=== PATIENT | male | born 1965 | race Caucasian/White ===

== ENCOUNTER 2017-08-25 07:36 | Inpatient (IN) | payer MEDICARE, MEDICAID ==
[~2017-08-25] VITALS: Ht 193 cm; Wt 102.0 kg
[2017-08-25] MEDS ORDERED: gentamicin 40 MG/1 ML inj IV SCH (08:10)
[2017-08-25] MEDS ORDERED: LORazepam 2 mg/ml vial IV ONE (08:10)
[2017-08-25] MEDS ORDERED: levoFLOXACIN-Levaquin 750MG/D5 150 ML IV ONE (08:10)
[2017-08-25] MEDS ORDERED: ondansetron/PF 4mg/2ml inj IV ONE (08:10)
[2017-08-25] MEDS ORDERED: morphine 5 MG/ML injection IV PRN (08:10)
[2017-08-25] MEDS ORDERED: normal saline 1000ML IV soln IVB ONE ×2 (08:10)
[2017-08-25] MEDS ORDERED: LIDOcaine 1.5% w/epinephrine 1:200,000 5ml ampul IJ ONE (08:15)
[2017-08-25 08:28] LABS: BASOPHILS # (AUTO) 0.1 X10'3 (0-0.2); BASOPHILS % (AUTO) 0.3 % (0-1); EOSINOPHILS # (AUTO) 0.4 X10'3 (0-0.9); EOSINOPHILS % (AUTO) 1.7 % (0-6); HEMOGLOBIN 13.7 g/dl (14.0-17.9); LYMPHOCYTES # (AUTO) 1.4 X10'3 (1.1-4.8); LYMPHOCYTES % (AUTO) 6.6 % (21-51); MEAN CORPUSCULAR HEMOGLOBIN 30.9 PG (27.0-31.0); MEAN CORPUSCULAR HGB CONC 34.2 % (33.0-36.5); MEAN CORPUSCULAR VOLUME 90.5 FL (78-98); MEAN PLATELET VOLUME 8.1 FL (7.4-10.4); MONOCYTES # (AUTO) 1.7 X10'3 (0-0.9); MONOCYTES % (AUTO) 8.2 % (2-12); NEUTROPHILS # (AUTO) 17.7 X10'3 (1.8-7.7); NEUTROPHILS % (AUTO) 83.2 % (42-75); PLATELET COUNT 410 X10'3 (140-440); RED BLOOD COUNT 4.42 X10'6 (4.70-6.10); WHITE BLOOD COUNT 21.2 X10'3 (4.5-11.0)
[2017-08-25 08:43] LABS: ALANINE AMINOTRANSFERASE 38 U/L (12-78); ALBUMIN 3.4 G/DL (3.4-5.0); ALBUMIN/GLOBULIN RATIO 0.7 (1.1-1.5); ALKALINE PHOSPHATASE 157 IU/L (46-116); ANION GAP 11 (8-16); ASPARTATE AMINO TRANSFERASE 23 U/L (10-37); BLOOD UREA NITROGEN 14 MG/DL (7-18); BUN/CREATININE RATIO 12.5 (5.4-32.0); CALCIUM 9.9 MG/DL (8.5-10.1); CHLORIDE 99 MMOL/L (99-107); CREATININE 1.12 MG/DL (0.60-1.10); GLUCOSE 362 MG/DL (70-104); POTASSIUM 3.9 MMOL/L (3.5-5.1); SODIUM 137 MMOL/L (135-145); TOTAL PROTEIN 8.1 G/DL (6.4-8.2); eGFR 69 ML/MIN
[2017-08-25 09:04] LABS: CLARITY,URINE CLEAR (Clear); COLOR,URINE AMBER (Yellow); GLUCOSE, URINE >=1000 mg/dl (Neg); KETONES,URINE >=80 mg/dl (Neg); LEUKOCYTE ESTERASE ,URINE NEGATIVE (Neg); NITRITES, URINE NEGATIVE (Neg); OCCULT BLOOD,URINE SMALL (Neg); PROTEIN,URINE 100 mg/dl (Neg)
[2017-08-25 09:05] LABS: UA COLLECTION TYPE CLN CATCH MIDSTREAM
[2017-08-25 09:06] LABS: BACTERIA,URINE FEW /HPF (Neg); COARSE GRANULAR CAST 0-3 /LPF (NEGATIVE); RBC,URINE 0-2 /HPF (0-2); SQUAMOUS EPITHELIAL CELL,UR FEW /LPF (FEW); WBC,URINE 0-4 /HPF (0-4)
[2017-08-25 09:07] LABS: MUCUS STRANDS MODERATE /LPF (Neg)
[2017-08-25] MEDS: morphine sulfate 8 MG/ML SYRINGE IV PRN ×2 (09:09→15:37)
[2017-08-25] MEDS ORDERED: NORMAL SALINE IV ONE (09:30)
[2017-08-25] MEDS ORDERED: GENTAMICIN IV ONE (09:30)
[2017-08-25] MEDS ORDERED: insulin regular, human 10 units/0.1 ml syringe IV ONE (10:45)
[2017-08-25] MEDS ORDERED: insulin regular, human 10 units/0.1 ml syringe SQ ONE (10:45)
[2017-08-25] MEDS ORDERED: MESSAGE TO PHARMACY PO ONE (10:55)
[2017-08-25] MEDS ORDERED: potassium Cl 40MEQ/NS 500ml 500 ML IV PRN ×2 (10:55)
[2017-08-25] MEDS ORDERED: mag hydrox/Alum hydrox/simeth 30ml oral suspension PO PRN (10:55)
[2017-08-25] MEDS ORDERED: glucagon, human recombinant 1mg kit SUBCUT PRN (10:55)
[2017-08-25] MEDS ORDERED: magnesium hydroxide 30ml (MOM) UD suspension PO PRN (10:55)
[2017-08-25] MEDS ORDERED: morphine sulfate 8 MG/ML SYRINGE IV PRN (10:55)
[2017-08-25] MEDS ORDERED: acetaminophen 325mg tablet PO PRN ×2 (10:55)
[2017-08-25] MEDS: normal saline 1000ml 1,000 ML IV SCH ×2 (10:55→23:32)
[2017-08-25] MEDS ORDERED: dextrose 50%-water 50ml dispensing syringe IV PRN ×2 (10:55)
[2017-08-25] MEDS ORDERED: magnesium 2GM in 50ml NS 50 ML IV PRN (10:55)
[2017-08-25] MEDS ORDERED: dextrose ORAL solution 15 GM/59 ML bottle PO PRN ×2 (10:55)
[2017-08-25] MEDS ORDERED: magnesium 4gm in 100ml NS 100 ML IV PRN (10:55)
[2017-08-25] MEDS ORDERED: ondansetron/PF 4mg/2ml inj IV PRN (10:55)
[2017-08-25] MEDS ORDERED: potassium Cl 20 mEq SR tablet PO PRN (10:55)
[2017-08-25] MEDS ORDERED: HYDROcodone/acetaminophen 5mg/325mg tablet PO PRN (10:55)
[2017-08-25] MEDS ORDERED: diltiazem 5mg/ml 5ml inj. IV ONE (11:00)
[2017-08-25 11:41] LABS: HEMOGLOBIN A1C 9.8 % (4.5-6.2)
[2017-08-25 11:46] LABS: TROPONIN I < 0.04 NG/ML (0.0-0.05)
[2017-08-25] MEDS ORDERED: INSU100V9 SQ (12:56)
[2017-08-25] MEDS ORDERED: INSU100C10 SQ (12:57)
[2017-08-25] MEDS ORDERED: NEURONTIN PO (12:58)
[2017-08-25] MEDS ORDERED: PRAVASTATIN PO (13:00)
[2017-08-25] MEDS ORDERED: vancomycin/NS 1 GM ADD-VANTAGE 250 ML IV ONE (13:00)
[2017-08-25] MEDS ORDERED: ASPI-611 PO (13:00)
[2017-08-25] MEDS ORDERED: METF1000 PO (13:01)
[2017-08-25 14:30] VITALS: BP 119/64
[2017-08-25] MEDS: nicotine 14mg patch - 24hr TD SCH (15:37)
[2017-08-25] MEDS ORDERED: piperacillin/tazo 3.375gm/50ml 50 ML IV SCH (16:00)
[2017-08-25] MEDS ORDERED: PRAV40TA3 PO (16:40)
[2017-08-25] MEDS ORDERED: GABA-532 PO (16:40)
[2017-08-25] MEDS: lactobacillus rhamnosus 10,000 MMU CELLS/CAPSULE PO SCH (16:55)
[2017-08-25 19:30] VITALS: BP 111/56
[2017-08-25] MEDS: docusate sod 100mg capsule PO SCH (20:18)
[2017-08-25] MEDS: heparin, porcine 5000 units/ml vial SQ SCH (20:20)
[2017-08-25] MEDS: HYDROcodone/acetaminophen 10/325mg tab PO PRN (20:30)
[2017-08-25] MEDS: Insulin Detemir pen SQ SCH (23:00)
[2017-08-25] MEDS: temazepam 15mg capsule PO PRN (23:29)
[2017-08-25] MEDS: pregabalin 25mg capsule PO SCH (23:29)
[2017-08-26] VITALS: BP 116/70
[2017-08-26] MEDS: HYDROcodone/acetaminophen 10/325mg tab PO PRN ×2 (01:57→07:53)
[2017-08-26 05:21] LABS: BASOPHILS # (AUTO) 0.1 X10'3 (0-0.2); BASOPHILS % (AUTO) 0.9 % (0-1); EOSINOPHILS # (AUTO) 0.2 X10'3 (0-0.9); EOSINOPHILS % (AUTO) 1.5 % (0-6); HEMATOCRIT 34.3 % (42.0-52.0); HEMOGLOBIN 11.7 g/dl (14.0-17.9); LYMPHOCYTES # (AUTO) 2.2 X10'3 (1.1-4.8); LYMPHOCYTES % (AUTO) 13.8 % (21-51); MEAN CORPUSCULAR HGB CONC 34.2 % (33.0-36.5); MEAN CORPUSCULAR VOLUME 90.7 FL (78-98); MEAN PLATELET VOLUME 8.5 FL (7.4-10.4); MONOCYTES # (AUTO) 1.7 X10'3 (0-0.9); MONOCYTES % (AUTO) 10.4 % (2-12); NEUTROPHILS # (AUTO) 11.8 X10'3 (1.8-7.7); NEUTROPHILS % (AUTO) 73.4 % (42-75); PLATELET COUNT 353 X10'3 (140-440); RED BLOOD COUNT 3.78 X10'6 (4.70-6.10); WHITE BLOOD COUNT 16.1 X10'3 (4.5-11.0)
[2017-08-26 06:01] LABS: ALANINE AMINOTRANSFERASE 35 U/L (12-78); ALBUMIN 2.5 G/DL (3.4-5.0); ALBUMIN/GLOBULIN RATIO 0.6 (1.1-1.5); ALKALINE PHOSPHATASE 145 IU/L (46-116); ANION GAP 10 (8-16); ASPARTATE AMINO TRANSFERASE 20 U/L (10-37); BILIRUBIN,TOTAL 0.8 MG/DL (0.1-1.0); BLOOD UREA NITROGEN 10 MG/DL (7-18); BUN/CREATININE RATIO 11.4 (5.4-32.0); CALCIUM 8.7 MG/DL (8.5-10.1); CHLORIDE 102 MMOL/L (99-107); CHOL/HDL RATIO 3.9 (0.00-4.99); CHOLESTEROL 102 MG/DL (0-200); CREATININE 0.88 MG/DL (0.60-1.10); GLUCOSE 196 MG/DL (70-104); HDL CHOLESTEROL 26 MG/DL (35-60); LDL CHOLESTEROL 66 MG/DL (50-100); MAGNESIUM 1.2 MG/DL (1.5-2.4); SODIUM 138 MMOL/L (135-145); TOTAL CARBON DIOXIDE 25.9 MMOL/L (24-32); TOTAL PROTEIN 6.6 G/DL (6.4-8.2); TRIGLYCERIDES 77 MG/DL (20-135); eGFR > 90 ML/MIN
[2017-08-26] MEDS: K and/or MAG REPLACEMENT MC SCH (06:43)
[2017-08-26] MEDS: normal saline 1000ml 1,000 ML IV SCH ×2 (06:55→17:10)
[2017-08-26 07:00] VITALS: BP 140/84
[2017-08-26] MEDS: docusate sod 100mg capsule PO SCH ×2 (07:49→20:24)
[2017-08-26] MEDS: lactobacillus rhamnosus 10,000 MMU CELLS/CAPSULE PO SCH ×2 (07:49→17:10)
[2017-08-26] MEDS: lisinopril 20mg tablet PO SCH (07:50)
[2017-08-26] MEDS: pantoprazole 40mg Tablet.DR PO SCH (07:50)
[2017-08-26] MEDS: magnesium Cl slow-release 64mg tablet PO PRN ×2 (07:51→20:22)
[2017-08-26] MEDS: pregabalin 25mg capsule PO SCH ×3 (07:51→20:23)
[2017-08-26] MEDS: potassium Cl 20 mEq SR tablet PO PRN ×3 (07:52→20:24)
[2017-08-26] MEDS: heparin, porcine 5000 units/ml vial SQ SCH ×2 (07:53→20:23)
[2017-08-26] MEDS: nicotine 14mg patch - 24hr TD SCH (08:30)
[2017-08-26] MEDS: levoFLOXACIN 250mg tablet PO SCH (08:30)
[2017-08-26] MEDS: insulin Lispro (HumaLOG) vial - multi-dose SQ SCH ×3 (08:46→18:53)
[2017-08-26] MEDS: morphine sulfate 8 MG/ML SYRINGE IV PRN ×2 (11:22→20:23)
[2017-08-26 12:57] VITALS: BP 108/60
[2017-08-26] MEDS ORDERED: VANCOMYCIN LEVEL IV ONE (19:30)
[2017-08-26 20:00] VITALS: BP 133/73
[2017-08-26] MEDS: Insulin Detemir pen SQ SCH (21:20)
[2017-08-27] VITALS: BP 131/70
[2017-08-27] MEDS: temazepam 15mg capsule PO PRN (00:23)
[2017-08-27] MEDS: morphine sulfate 8 MG/ML SYRINGE IV PRN ×4 (00:23→16:20)
[2017-08-27] MEDS: normal saline 1000ml 1,000 ML IV SCH ×3 (02:55→22:55)
[2017-08-27 05:40] LABS: BASOPHILS # (AUTO) 0.1 X10'3 (0-0.2); BASOPHILS % (AUTO) 0.8 % (0-1); EOSINOPHILS # (AUTO) 0.4 X10'3 (0-0.9); EOSINOPHILS % (AUTO) 3.2 % (0-6); HEMATOCRIT 34.9 % (42.0-52.0); LYMPHOCYTES # (AUTO) 2.5 X10'3 (1.1-4.8); LYMPHOCYTES % (AUTO) 19.4 % (21-51); MEAN CORPUSCULAR HEMOGLOBIN 31.1 PG (27.0-31.0); MEAN CORPUSCULAR HGB CONC 34.4 % (33.0-36.5); MEAN CORPUSCULAR VOLUME 90.2 FL (78-98); MONOCYTES # (AUTO) 1.2 X10'3 (0-0.9); MONOCYTES % (AUTO) 9.7 % (2-12); NEUTROPHILS # (AUTO) 8.6 X10'3 (1.8-7.7); NEUTROPHILS % (AUTO) 66.9 % (42-75); PLATELET COUNT 356 X10'3 (140-440); RED BLOOD COUNT 3.87 X10'6 (4.70-6.10); RED CELL DISTRIBUTION WIDTH 13.7 % (11.5-14.5); WHITE BLOOD COUNT 12.8 X10'3 (4.5-11.0)
[2017-08-27 06:00] LABS: ALANINE AMINOTRANSFERASE 48 U/L (12-78); ALBUMIN 2.5 G/DL (3.4-5.0); ALBUMIN/GLOBULIN RATIO 0.6 (1.1-1.5); ALKALINE PHOSPHATASE 166 IU/L (46-116); ANION GAP 12 (8-16); ASPARTATE AMINO TRANSFERASE 34 U/L (10-37); BILIRUBIN,TOTAL 0.5 MG/DL (0.1-1.0); BLOOD UREA NITROGEN 12 MG/DL (7-18); BUN/CREATININE RATIO 15.6 (5.4-32.0); CALCIUM 9.1 MG/DL (8.5-10.1); CHLORIDE 104 MMOL/L (99-107); CREATININE 0.77 MG/DL (0.60-1.10); GLUCOSE 141 MG/DL (70-104); MAGNESIUM 1.3 MG/DL (1.5-2.4); POTASSIUM 3.7 MMOL/L (3.5-5.1); SODIUM 140 MMOL/L (135-145); TOTAL CARBON DIOXIDE 23.7 MMOL/L (24-32); TOTAL PROTEIN 6.6 G/DL (6.4-8.2); eGFR > 90 ML/MIN
[2017-08-27 07:00] VITALS: BP 109/69
[2017-08-27] MEDS: docusate sod 100mg capsule PO SCH ×2 (07:34→20:56)
[2017-08-27] MEDS: lactobacillus rhamnosus 10,000 MMU CELLS/CAPSULE PO SCH ×2 (07:34→16:19)
[2017-08-27] MEDS: pregabalin 25mg capsule PO SCH ×3 (07:34→20:56)
[2017-08-27] MEDS: lisinopril 20mg tablet PO SCH (07:35)
[2017-08-27] MEDS: HYDROcodone/acetaminophen 10/325mg tab PO PRN ×2 (07:35→13:20)
[2017-08-27] MEDS: heparin, porcine 5000 units/ml vial SQ SCH ×2 (07:35→20:56)
[2017-08-27] MEDS: levoFLOXACIN 250mg tablet PO SCH (07:35)
[2017-08-27] MEDS: pantoprazole 40mg Tablet.DR PO SCH (07:35)
[2017-08-27] MEDS: nicotine 14mg patch - 24hr TD SCH (07:36)
[2017-08-27] MEDS: K and/or MAG REPLACEMENT MC SCH (07:37)
[2017-08-27] MEDS: magnesium Cl slow-release 64mg tablet PO PRN ×2 (07:53→16:19)
[2017-08-27 11:34] VITALS: BP 96/51
[2017-08-27] MEDS: insulin Lispro (HumaLOG) vial - multi-dose SQ SCH (14:19)
[2017-08-27] MEDS: LORazepam 1 MG tablet PO PRN (16:19)
[2017-08-27 20:00] VITALS: BP 144/94
[2017-08-27] MEDS: Insulin Detemir pen SQ SCH (21:11)
[2017-08-28] VITALS: BP 120/62
[2017-08-28] MEDS: HYDROcodone/acetaminophen 10/325mg tab PO PRN ×4 (00:02→16:57)
[2017-08-28] MEDS: LORazepam 1 MG tablet PO PRN ×3 (00:02→21:52)
[2017-08-28] MEDS: normal saline 1000ml 1,000 ML IV SCH ×2 (01:11→18:55)
[2017-08-28 05:21] LABS: BASOPHILS # (AUTO) 0.1 X10'3 (0-0.2); BASOPHILS % (AUTO) 1.3 % (0-1); EOSINOPHILS # (AUTO) 0.3 X10'3 (0-0.9); EOSINOPHILS % (AUTO) 2.6 % (0-6); HEMOGLOBIN 11.5 g/dl (14.0-17.9); LYMPHOCYTES # (AUTO) 2.6 X10'3 (1.1-4.8); LYMPHOCYTES % (AUTO) 22.2 % (21-51); MEAN CORPUSCULAR HEMOGLOBIN 30.8 PG (27.0-31.0); MEAN CORPUSCULAR HGB CONC 33.9 % (33.0-36.5); MEAN CORPUSCULAR VOLUME 90.7 FL (78-98); MEAN PLATELET VOLUME 8.3 FL (7.4-10.4); MONOCYTES # (AUTO) 1.1 X10'3 (0-0.9); MONOCYTES % (AUTO) 9.2 % (2-12); NEUTROPHILS # (AUTO) 7.5 X10'3 (1.8-7.7); NEUTROPHILS % (AUTO) 64.7 % (42-75); PLATELET COUNT 369 X10'3 (140-440); RED BLOOD COUNT 3.75 X10'6 (4.70-6.10); RED CELL DISTRIBUTION WIDTH 13.8 % (11.5-14.5); WHITE BLOOD COUNT 11.6 X10'3 (4.5-11.0)
[2017-08-28 05:59] LABS: ALANINE AMINOTRANSFERASE 66 U/L (12-78); ALBUMIN 2.4 G/DL (3.4-5.0); ALBUMIN/GLOBULIN RATIO 0.6 (1.1-1.5); ALKALINE PHOSPHATASE 196 IU/L (46-116); ANION GAP 8 (8-16); ASPARTATE AMINO TRANSFERASE 37 U/L (10-37); BILIRUBIN,TOTAL 0.3 MG/DL (0.1-1.0); BLOOD UREA NITROGEN 12 MG/DL (7-18); BUN/CREATININE RATIO 13.3 (5.4-32.0); CALCIUM 8.9 MG/DL (8.5-10.1); CHLORIDE 105 MMOL/L (99-107); GLUCOSE 255 MG/DL (70-104); MAGNESIUM 1.4 MG/DL (1.5-2.4); POTASSIUM 3.7 MMOL/L (3.5-5.1); SODIUM 139 MMOL/L (135-145); TOTAL CARBON DIOXIDE 26.1 MMOL/L (24-32); TOTAL PROTEIN 6.5 G/DL (6.4-8.2); eGFR 89 ML/MIN
[2017-08-28] MEDS: K and/or MAG REPLACEMENT MC SCH (06:27)
[2017-08-28 06:30] VITALS: BP 116/71
[2017-08-28] MEDS: pregabalin 25mg capsule PO SCH ×3 (07:23→21:38)
[2017-08-28] MEDS: lisinopril 20mg tablet PO SCH (07:23)
[2017-08-28] MEDS: nicotine 14mg patch - 24hr TD SCH (07:23)
[2017-08-28] MEDS: pantoprazole 40mg Tablet.DR PO SCH (07:23)
[2017-08-28] MEDS: lactobacillus rhamnosus 10,000 MMU CELLS/CAPSULE PO SCH ×2 (07:23→16:51)
[2017-08-28] MEDS: magnesium Cl slow-release 64mg tablet PO PRN (07:23)
[2017-08-28] MEDS: docusate sod 100mg capsule PO SCH ×2 (07:23→20:00)
[2017-08-28] MEDS: morphine sulfate 8 MG/ML SYRINGE IV PRN ×4 (07:24→21:39)
[2017-08-28] MEDS: heparin, porcine 5000 units/ml vial SQ SCH ×2 (07:24→21:39)
[2017-08-28] MEDS: insulin Lispro (HumaLOG) vial - multi-dose SQ SCH ×3 (08:48→19:21)
[2017-08-28 11:16] VITALS: BP 118/67
[2017-08-28] MEDS ORDERED: magnesium 4gm in 100ml NS 100 ML IV PRN (16:45)
[2017-08-28] MEDS ORDERED: magnesium Cl slow-release 64mg tablet PO PRN (16:45)
[2017-08-28] MEDS ORDERED: potassium Cl 40MEQ/NS 500ml 500 ML IV PRN ×2 (16:45)
[2017-08-28] MEDS ORDERED: potassium Cl 20 mEq SR tablet PO PRN ×2 (16:45)
[2017-08-28] MEDS ORDERED: magnesium 2GM in 50ml NS 50 ML IV PRN (16:45)
[2017-08-28 20:00] VITALS: BP 142/81
[2017-08-28] MEDS: Insulin Detemir pen SQ SCH (21:37)
[2017-08-29] VITALS: BP 123/75
[2017-08-29] MEDS: temazepam 15mg capsule PO PRN (00:12)
[2017-08-29] MEDS: HYDROcodone/acetaminophen 10/325mg tab PO PRN ×5 (00:12→23:53)
[2017-08-29] MEDS: normal saline 1000ml 1,000 ML IV SCH ×2 (04:13→17:27)
[2017-08-29 05:35] LABS: BASOPHILS # (AUTO) 0.2 X10'3 (0-0.2); BASOPHILS % (AUTO) 1.4 % (0-1); EOSINOPHILS # (AUTO) 0.3 X10'3 (0-0.9); EOSINOPHILS % (AUTO) 2.5 % (0-6); HEMATOCRIT 35.1 % (42.0-52.0); HEMOGLOBIN 11.9 g/dl (14.0-17.9); LYMPHOCYTES # (AUTO) 2.3 X10'3 (1.1-4.8); LYMPHOCYTES % (AUTO) 19.9 % (21-51); MEAN CORPUSCULAR HEMOGLOBIN 30.7 PG (27.0-31.0); MEAN CORPUSCULAR HGB CONC 33.9 % (33.0-36.5); MEAN CORPUSCULAR VOLUME 90.5 FL (78-98); MEAN PLATELET VOLUME 8.1 FL (7.4-10.4); MONOCYTES # (AUTO) 0.9 X10'3 (0-0.9); MONOCYTES % (AUTO) 7.4 % (2-12); NEUTROPHILS % (AUTO) 68.8 % (42-75); PLATELET COUNT 400 X10'3 (140-440); RED BLOOD COUNT 3.88 X10'6 (4.70-6.10); RED CELL DISTRIBUTION WIDTH 13.8 % (11.5-14.5); WHITE BLOOD COUNT 11.7 X10'3 (4.5-11.0)
[2017-08-29 06:25] LABS: ALANINE AMINOTRANSFERASE 61 U/L (12-78); ALBUMIN 2.5 G/DL (3.4-5.0); ALBUMIN/GLOBULIN RATIO 0.6 (1.1-1.5); ALKALINE PHOSPHATASE 195 IU/L (46-116); ANION GAP 11 (8-16); ASPARTATE AMINO TRANSFERASE 32 U/L (10-37); BILIRUBIN,TOTAL 0.3 MG/DL (0.1-1.0); BLOOD UREA NITROGEN 8 MG/DL (7-18); BUN/CREATININE RATIO 10.5 (5.4-32.0); CALCIUM 9.4 MG/DL (8.5-10.1); CHLORIDE 105 MMOL/L (99-107); CREATININE 0.76 MG/DL (0.60-1.10); GLUCOSE 140 MG/DL (70-104); MAGNESIUM 1.5 MG/DL (1.5-2.4); SODIUM 140 MMOL/L (135-145); TOTAL CARBON DIOXIDE 24.5 MMOL/L (24-32); TOTAL PROTEIN 6.8 G/DL (6.4-8.2); eGFR > 90 ML/MIN
[2017-08-29 06:30] VITALS: BP 126/85
[2017-08-29] MEDS: K and/or MAG REPLACEMENT MC SCH (06:36)
[2017-08-29] MEDS: docusate sod 100mg capsule PO SCH ×2 (07:24→19:36)
[2017-08-29] MEDS: lisinopril 20mg tablet PO SCH (07:24)
[2017-08-29] MEDS: lactobacillus rhamnosus 10,000 MMU CELLS/CAPSULE PO SCH ×2 (07:24→17:26)
[2017-08-29] MEDS: LORazepam 1 MG tablet PO PRN ×3 (07:24→23:52)
[2017-08-29] MEDS: nicotine 14mg patch - 24hr TD SCH (07:24)
[2017-08-29] MEDS: pregabalin 25mg capsule PO SCH ×3 (07:25→21:31)
[2017-08-29] MEDS: pantoprazole 40mg Tablet.DR PO SCH (07:25)
[2017-08-29] MEDS: heparin, porcine 5000 units/ml vial SQ SCH ×2 (07:25→19:36)
[2017-08-29] MEDS: morphine sulfate 8 MG/ML SYRINGE IV PRN ×2 (07:28→21:31)
[2017-08-29] MEDS: insulin Lispro (HumaLOG) vial - multi-dose SQ SCH ×3 (09:36→19:42)
[2017-08-29 11:57] VITALS: BP 141/96
[2017-08-29 20:00] VITALS: BP 130/77
[2017-08-29] MEDS: Insulin Detemir pen SQ SCH (21:45)
[2017-08-29] MEDS: diphenhydrAMINE 50 mg/ml inj IV PRN (23:52)
[2017-08-30] VITALS: BP 149/86
[2017-08-30] MEDS: normal saline 1000ml 1,000 ML IV SCH ×3 (00:55→21:21)
[2017-08-30] MEDS: morphine sulfate 8 MG/ML SYRINGE IV PRN (04:55)
[2017-08-30 06:45] LABS: BASOPHILS # (AUTO) 0.1 X10'3 (0-0.2); BASOPHILS % (AUTO) 1.2 % (0-1); EOSINOPHILS # (AUTO) 0.5 X10'3 (0-0.9); EOSINOPHILS % (AUTO) 4.2 % (0-6); HEMATOCRIT 35.1 % (42.0-52.0); LYMPHOCYTES # (AUTO) 2.6 X10'3 (1.1-4.8); LYMPHOCYTES % (AUTO) 22.9 % (21-51); MEAN CORPUSCULAR HEMOGLOBIN 31.2 PG (27.0-31.0); MEAN CORPUSCULAR HGB CONC 34.1 % (33.0-36.5); MEAN CORPUSCULAR VOLUME 91.6 FL (78-98); MEAN PLATELET VOLUME 7.7 FL (7.4-10.4); MONOCYTES # (AUTO) 0.8 X10'3 (0-0.9); NEUTROPHILS # (AUTO) 7.3 X10'3 (1.8-7.7); NEUTROPHILS % (AUTO) 64.7 % (42-75); PLATELET COUNT 393 X10'3 (140-440); RED BLOOD COUNT 3.83 X10'6 (4.70-6.10); WHITE BLOOD COUNT 11.2 X10'3 (4.5-11.0)
[2017-08-30 07:07] LABS: ALANINE AMINOTRANSFERASE 60 U/L (12-78); ALBUMIN 2.5 G/DL (3.4-5.0); ALBUMIN/GLOBULIN RATIO 0.6 (1.1-1.5); ALKALINE PHOSPHATASE 184 IU/L (46-116); ANION GAP 8 (8-16); ASPARTATE AMINO TRANSFERASE 30 U/L (10-37); BILIRUBIN,TOTAL 0.2 MG/DL (0.1-1.0); BLOOD UREA NITROGEN 12 MG/DL (7-18); BUN/CREATININE RATIO 14.1 (5.4-32.0); CALCIUM 9.4 MG/DL (8.5-10.1); CHLORIDE 107 MMOL/L (99-107); CREATININE 0.85 MG/DL (0.60-1.10); GLUCOSE 172 MG/DL (70-104); MAGNESIUM 1.6 MG/DL (1.5-2.4); POTASSIUM 4.1 MMOL/L (3.5-5.1); SODIUM 141 MMOL/L (135-145); TOTAL CARBON DIOXIDE 25.6 MMOL/L (24-32); TOTAL PROTEIN 6.8 G/DL (6.4-8.2); eGFR > 90 ML/MIN
[2017-08-30] MEDS: nicotine 14mg patch - 24hr TD SCH (07:12)
[2017-08-30] MEDS: heparin, porcine 5000 units/ml vial SQ SCH ×2 (07:15→21:21)
[2017-08-30] MEDS: lactobacillus rhamnosus 10,000 MMU CELLS/CAPSULE PO SCH ×2 (07:18→17:22)
[2017-08-30] MEDS: docusate sod 100mg capsule PO SCH ×2 (07:19→21:19)
[2017-08-30] MEDS: pantoprazole 40mg Tablet.DR PO SCH (07:19)
[2017-08-30] MEDS: pregabalin 25mg capsule PO SCH ×3 (07:20→21:19)
[2017-08-30] MEDS: HYDROcodone/acetaminophen 10/325mg tab PO PRN ×3 (07:20→21:18)
[2017-08-30] MEDS: lisinopril 20mg tablet PO SCH (07:20)
[2017-08-30] MEDS: diphenhydrAMINE 50 mg/ml inj IV PRN ×2 (07:21→21:20)
[2017-08-30 07:31] VITALS: BP 142/84
[2017-08-30] MEDS: K and/or MAG REPLACEMENT MC SCH (07:39)
[2017-08-30] MEDS: LORazepam 1 MG tablet PO PRN ×2 (08:28→17:22)
[2017-08-30] MEDS: insulin Lispro (HumaLOG) vial - multi-dose SQ SCH ×2 (08:55→19:23)
[2017-08-30 11:47] VITALS: BP_SYST 151; BP_SYST 159; BP_DIAS 80; BP_DIAS 89
[2017-08-30] MEDS ORDERED: magnesium 2GM in 50ml NS 50 ML IV PRN (19:35)
[2017-08-30] MEDS ORDERED: magnesium Cl slow-release 64mg tablet PO PRN (19:35)
[2017-08-30] MEDS ORDERED: magnesium 4gm in 100ml NS 100 ML IV PRN (19:35)
[2017-08-30 20:00] VITALS: BP_SYST 131; BP_SYST 134; BP_DIAS 71; BP_DIAS 74
[2017-08-30] MEDS: Insulin Detemir pen SQ SCH (21:30)
[2017-08-31] MEDS: LORazepam 1 MG tablet PO PRN ×2 (01:59→14:58)
[2017-08-31] MEDS: HYDROcodone/acetaminophen 10/325mg tab PO PRN ×3 (02:00→12:20)
[2017-08-31] MEDS: normal saline 1000ml 1,000 ML IV SCH (06:55)
[2017-08-31] MEDS: K and/or MAG REPLACEMENT MC SCH (06:55)
[2017-08-31 07:12] VITALS: BP 144/83
[2017-08-31] MEDS: pantoprazole 40mg Tablet.DR PO SCH (07:31)
[2017-08-31] MEDS: lactobacillus rhamnosus 10,000 MMU CELLS/CAPSULE PO SCH (07:31)
[2017-08-31] MEDS: docusate sod 100mg capsule PO SCH (07:31)
[2017-08-31] MEDS: lisinopril 20mg tablet PO SCH (07:32)
[2017-08-31] MEDS: pregabalin 25mg capsule PO SCH ×2 (07:32→12:20)
[2017-08-31] MEDS: nicotine 14mg patch - 24hr TD SCH (07:34)
[2017-08-31] MEDS: heparin, porcine 5000 units/ml vial SQ SCH (07:35)
[2017-08-31] MEDS: insulin Lispro (HumaLOG) vial - multi-dose SQ SCH ×2 (08:33→13:29)
[2017-08-31 11:00] VITALS: BP 145/84
[2017-08-31] MEDS ORDERED: linezolid 600mg tablet PO SCH (11:00)
[2017-08-31] MEDS ORDERED: SULF1TAB49 PO (11:04)
== END 2017-08-31 17:41 | disposition home or self-care (01) | DRG 581 ==
LOC: ER 07:37 → ED HOLD 10:34 → EDBEDREQ 12:03 → SUR 3N 14:32
PROVIDERS: ADMIT Internal Medicine; ATTEND Internal Medicine
PROC: 0J970ZZ Drainage of Back Subcutaneous Tissue and Fascia, Open Approach (ICD-10-PCS; principal; 2017-08-25)
DX: L03.312 Cellulitis of back [any part except buttock and flank] (principal); E11.42 Type 2 diabetes mellitus with diabetic polyneuropathy; E11.65 Type 2 diabetes mellitus with hyperglycemia; L02.212 Cutaneous abscess of back [any part, except buttock and flank]; B95.62 Methicillin resistant Staphylococcus aureus infection as the cause of diseases classified elsewhere; D64.9 Anemia, unspecified; E78.5 Hyperlipidemia, unspecified; E83.42 Hypomagnesemia; E87.6 Hypokalemia; F32.9 Major depressive disorder, single episode, unspecified; F41.9 Anxiety disorder, unspecified; I10 Essential (primary) hypertension; N28.9 Disorder of kidney and ureter, unspecified; G43.909 Migraine, unspecified, not intractable, without status migrainosus; M54.9 Dorsalgia, unspecified; F17.210 Nicotine dependence, cigarettes, uncomplicated; Z59.0 Homelessness; Z88.0 Allergy status to penicillin; Z79.899 Other long term (current) drug therapy; Z79.82 Long term (current) use of aspirin; Z79.4 Long term (current) use of insulin; Z79.84 Long term (current) use of oral hypoglycemic drugs; Z71.6 Tobacco abuse counseling
CPT/HCPCS: 10060; 36415; 80053; 80061; 80202; 81001; 82948; 83036; 83605; 83735; 83880; 84484; 85025; 87040; 87070; 87077; 87186; 93005; 96374; 96375; 99285; A6213; A6251; A6253; A6266; A6449; J1200; J1580; J1644; J1815; J1956; J2060; J2270; J2405; J3370; J3490; J7030

== ENCOUNTER 2017-09-02 08:02 | Emergency (ER) | payer MEDICARE, MEDICAID ==
[~2017-09-02] VITALS: Ht 193 cm; Wt 104.1 kg
[~2017-09-02 08:02] MED LIST: ASPI-611 PO; GABA-532 PO; INSU100C10 SQ; INSU100V9 SQ; METF1000 PO; PRAV40TA3 PO; SULF1TAB49 PO
[2017-09-02] MEDS ORDERED: HYDROcodone/acetaminophen 10/325mg tab PO ONE (08:45)
[2017-09-02] MEDS ORDERED: metFORMIN 500mg tablet PO ONE (09:45)
[2017-09-02 09:58] VITALS: BP 123/81
== END 2017-09-02 09:59 | disposition home or self-care (01) ==
LOC: ER 08:02
DX: Z48.01 Encounter for change or removal of surgical wound dressing (principal); L08.9 Local infection of the skin and subcutaneous tissue, unspecified; E11.9 Type 2 diabetes mellitus without complications; Z79.4 Long term (current) use of insulin; Z88.0 Allergy status to penicillin; Z59.0 Homelessness
CPT/HCPCS: 82948; 99283; A6266; A6449

== ENCOUNTER 2017-09-05 08:53 | Emergency (ER) | payer MEDICARE, MEDICAID ==
[~2017-09-05] VITALS: Ht 193 cm; Wt 97.0 kg
[2017-09-05 08:55] VITALS: BP 136/83
== END 2017-09-05 09:29 | disposition home or self-care (01) ==
LOC: ER 08:54
DX: Z48.00 Encounter for change or removal of nonsurgical wound dressing (principal); E11.9 Type 2 diabetes mellitus without complications; Z86.14 Personal history of Methicillin resistant Staphylococcus aureus infection; Z79.82 Long term (current) use of aspirin; Z79.4 Long term (current) use of insulin; Z79.84 Long term (current) use of oral hypoglycemic drugs; Z88.0 Allergy status to penicillin; Z59.0 Homelessness
CPT/HCPCS: 99282; A6255

== ENCOUNTER 2017-09-08 09:50 | Emergency (ER) | payer MEDICARE, MEDICAID ==
[~2017-09-08] VITALS: Ht 193 cm; Wt 102.6 kg
[2017-09-08] MEDS ORDERED: bacitracin 15gm ointment TP ONE (13:35)
[2017-09-08 13:51] VITALS: BP 131/76
== END 2017-09-08 13:52 | disposition home or self-care (01) ==
LOC: ER 09:51
DX: Z48.00 Encounter for change or removal of nonsurgical wound dressing (principal); E11.9 Type 2 diabetes mellitus without complications; Z86.14 Personal history of Methicillin resistant Staphylococcus aureus infection; Z59.0 Homelessness; Z79.82 Long term (current) use of aspirin; Z79.4 Long term (current) use of insulin; Z79.84 Long term (current) use of oral hypoglycemic drugs; Z88.0 Allergy status to penicillin
CPT/HCPCS: 99282

== ENCOUNTER 2017-10-04 07:49 | Emergency (ER) | payer MEDICARE, MEDICAID ==
[~2017-10-04] VITALS: Ht 193 cm; Wt 102.4 kg
[~2017-10-04 07:49] MED LIST changes: -SULF1TAB49 PO
[2017-10-04] MEDS ORDERED: CEPH-572 PO (08:18)
[2017-10-04] MEDS ORDERED: SULF1TAB49 PO (08:18)
[2017-10-04 08:19] VITALS: BP 105/70
== END 2017-10-04 08:29 | disposition home or self-care (01) ==
LOC: ER 07:49
DX: L02.212 Cutaneous abscess of back [any part, except buttock and flank] (principal); G43.909 Migraine, unspecified, not intractable, without status migrainosus; E11.9 Type 2 diabetes mellitus without complications; Z88.0 Allergy status to penicillin; Z79.82 Long term (current) use of aspirin; Z79.4 Long term (current) use of insulin
CPT/HCPCS: 82948; 99283

== ENCOUNTER 2017-12-26 18:40 | Emergency (ER) | payer MEDICARE, MEDICAID ==
[~2017-12-26] VITALS: Ht 195.6 cm; Wt 93.5 kg
[2017-12-26] MEDS ORDERED: ketorolac trometh inj. 60 MG/2 ML VIAL IM ONE (21:35)
[2017-12-26 22:49] VITALS: BP 128/68
== END 2017-12-26 22:50 | disposition home or self-care (01) ==
LOC: ER 18:41
DX: M54.42 Lumbago with sciatica, left side (principal); G43.909 Migraine, unspecified, not intractable, without status migrainosus; E11.9 Type 2 diabetes mellitus without complications; M19.90 Unspecified osteoarthritis, unspecified site; G89.29 Other chronic pain; Z86.14 Personal history of Methicillin resistant Staphylococcus aureus infection; Z59.0 Homelessness; Z88.0 Allergy status to penicillin; Z79.82 Long term (current) use of aspirin; Z79.4 Long term (current) use of insulin; Z79.84 Long term (current) use of oral hypoglycemic drugs; Z79.899 Other long term (current) drug therapy
CPT/HCPCS: 96372; 99283; J1885

== ENCOUNTER 2018-05-24 19:27 | Emergency (ER) | payer MEDICARE, MEDICAID ==
[~2018-05-24] VITALS: Ht 193 cm; Wt 88.6 kg
[2018-05-24] MEDS ORDERED: HYDROcodone/acetaminophen 10/325mg tab PO ONE (21:30)
[2018-05-24] MEDS ORDERED: IBUP-1986 PO (21:31)
[2018-05-24 21:57] VITALS: BP 167/97
== END 2018-05-24 21:59 | disposition home or self-care (01) ==
LOC: ER 19:27
DX: S09.90XA Unspecified injury of head, initial encounter (principal); E11.9 Type 2 diabetes mellitus without complications; M19.90 Unspecified osteoarthritis, unspecified site; G89.29 Other chronic pain; Z86.14 Personal history of Methicillin resistant Staphylococcus aureus infection; Z59.0 Homelessness; Z88.0 Allergy status to penicillin; Z79.82 Long term (current) use of aspirin; Z79.4 Long term (current) use of insulin; Z79.899 Other long term (current) drug therapy; Y04.8XXA Assault by other bodily force, initial encounter; Y93.89 Activity, other specified; Y92.241 Library as the place of occurrence of the external cause; Y99.8 Other external cause status
CPT/HCPCS: 70450; 99284; A6449

== ENCOUNTER 2018-09-16 20:13 | Emergency (ER) | payer MEDICARE, MEDICAID ==
[~2018-09-16] VITALS: Ht 193 cm; Wt 100.0 kg
[~2018-09-16 20:13] MED LIST changes: +IBUP-1986 PO
[2018-09-16] MEDS ORDERED: meperidine/PF 50mg/ml syringe IV ONE (21:55)
[2018-09-16] MEDS ORDERED: normal saline 1000ML IV soln IVB ONE (22:00)
[2018-09-16] MEDS ORDERED: PHENYLEPHRINE SQ ONE (22:05)
[2018-09-16] MEDS ORDERED: NORMAL SALINE SQ ONE (22:05)
[2018-09-16] MEDS ORDERED: LIDOcaine 1% 30ml preserv. free vial IJ ONE (22:10)
[2018-09-16 22:25] LABS: BASOPHILS % (AUTO) 0.4 % (0-1); EOSINOPHILS % (AUTO) 0.4 % (0-6); HEMATOCRIT 39.6 % (42.0-52.0); HEMOGLOBIN 13.5 g/dl (14.0-17.9); LYMPHOCYTES # (AUTO) 2.2 X10'3 (1.1-4.8); LYMPHOCYTES % (AUTO) 18.1 % (21-51); MEAN CORPUSCULAR HEMOGLOBIN 31.6 PG (27.0-31.0); MEAN CORPUSCULAR HGB CONC 34.1 % (33.0-36.5); MEAN CORPUSCULAR VOLUME 92.8 FL (78-98); MEAN PLATELET VOLUME 8.1 FL (7.4-10.4); MONOCYTES # (AUTO) 0.7 X10'3 (0-0.9); MONOCYTES % (AUTO) 5.6 % (2-12); NEUTROPHILS # (AUTO) 9.1 X10'3 (1.8-7.7); NEUTROPHILS % (AUTO) 75.5 % (42-75); PLATELET COUNT 483 X10'3 (140-440); RED BLOOD COUNT 4.27 X10'6 (4.70-6.10); RED CELL DISTRIBUTION WIDTH 15.1 % (11.5-14.5)
[2018-09-16] MEDS ORDERED: TETanus/Pertussis (Acell)/Diphther VAC/PF (Tdap-Adult) 0.5ml syringe IM ONE (22:30)
[2018-09-16 22:35] LABS: ALANINE AMINOTRANSFERASE 27 U/L (12-78); ALBUMIN 4.1 G/DL (3.4-5.0); ALBUMIN/GLOBULIN RATIO 1.1 (1.1-1.5); ALKALINE PHOSPHATASE 96 IU/L (46-116); ANION GAP 12 (8-16); ASPARTATE AMINO TRANSFERASE 17 U/L (10-37); BILIRUBIN,TOTAL 0.6 MG/DL (0.1-1.0); BLOOD UREA NITROGEN 13 MG/DL (7-18); BUN/CREATININE RATIO 13.8 (5.4-32.0); CALCIUM 9.6 MG/DL (8.5-10.1); CHLORIDE 100 MMOL/L (99-107); CREATININE 0.94 MG/DL (0.60-1.10); GLUCOSE 129 MG/DL (70-104); MAGNESIUM 1.5 MG/DL (1.5-2.4); POTASSIUM 3.6 MMOL/L (3.5-5.1); SODIUM 138 MMOL/L (135-145); TOTAL CARBON DIOXIDE 25.6 MMOL/L (24-32); TOTAL PROTEIN 7.8 G/DL (6.4-8.2); eGFR 85 ML/MIN
[2018-09-16 22:39] LABS: PARTIAL THROMBOPLASTIN TIME 26 SECONDS (22-32); PROTHROMBIN TIME 10.4 SECONDS (9.0-12.0)
[2018-09-16] MEDS ORDERED: MIDAZolam 5mg/ml 2ml vial IV ONE (23:00)
[2018-09-17 01:32] VITALS: BP 133/75
== END 2018-09-17 01:36 | disposition home or self-care (01) ==
LOC: ER 20:13
DX: N48.39 Other priapism (principal); G43.909 Migraine, unspecified, not intractable, without status migrainosus; E11.9 Type 2 diabetes mellitus without complications; M19.90 Unspecified osteoarthritis, unspecified site; G89.29 Other chronic pain; M79.7 Fibromyalgia; Z59.0 Homelessness; Z86.14 Personal history of Methicillin resistant Staphylococcus aureus infection; Z85.038 Personal history of other malignant neoplasm of large intestine; Z88.0 Allergy status to penicillin; Z79.899 Other long term (current) drug therapy; Z79.82 Long term (current) use of aspirin; Z79.4 Long term (current) use of insulin
CPT/HCPCS: 36415; 54220; 80053; 83735; 85025; 85610; 85730; 90471; 90715; 96374; 99284; J2175; J2250; J2370; J3490; J7030; J7040

== ENCOUNTER 2018-11-11 15:02 | Emergency (ER) | payer MEDICARE, MEDICAID ==
[~2018-11-11] VITALS: Ht 193 cm; Wt 87.2 kg
[2018-11-11 15:51] LABS: BASOPHILS # (AUTO) 0.1 X10'3 (0-0.2); BASOPHILS % (AUTO) 1.2 % (0-1); EOSINOPHILS # (AUTO) 0.2 X10'3 (0-0.9); EOSINOPHILS % (AUTO) 1.9 % (0-6); HEMOGLOBIN 15.1 g/dl (14.0-17.9); LYMPHOCYTES # (AUTO) 3.2 X10'3 (1.1-4.8); MEAN CORPUSCULAR HEMOGLOBIN 31.7 PG (27.0-31.0); MEAN CORPUSCULAR HGB CONC 33.4 g/dL (33.0-36.5); MEAN CORPUSCULAR VOLUME 94.9 FL (78-98); MEAN PLATELET VOLUME 8.2 FL (7.4-10.4); MONOCYTES # (AUTO) 0.6 X10'3 (0-0.9); MONOCYTES % (AUTO) 5.7 % (2-12); NEUTROPHILS # (AUTO) 6.9 X10'3 (1.8-7.7); NEUTROPHILS % (AUTO) 62.2 % (42-75); PLATELET COUNT 434 X10'3 (140-440); RED BLOOD COUNT 4.75 X10'6 (4.70-6.10); RED CELL DISTRIBUTION WIDTH 16.3 % (11.5-14.5); WHITE BLOOD COUNT 11.1 X10'3 (4.5-11.0)
[2018-11-11 16:02] LABS: ALANINE AMINOTRANSFERASE 23 U/L (12-78); ALBUMIN 3.6 G/DL (3.4-5.0); ALKALINE PHOSPHATASE 87 IU/L (46-116); ANION GAP 5 (8-16); ASPARTATE AMINO TRANSFERASE 14 U/L (10-37); BILIRUBIN,TOTAL 0.1 MG/DL (0.1-1.0); BLOOD UREA NITROGEN 11 MG/DL (7-18); BUN/CREATININE RATIO 13.1 (5.4-32.0); CALCIUM 9.6 MG/DL (8.5-10.1); CHLORIDE 107 MMOL/L (99-107); CREATININE 0.84 MG/DL (0.60-1.10); ETHANOL < 0.010 GM/DL (0.0-0.010); GLUCOSE 126 MG/DL (70-104); POTASSIUM 3.9 MMOL/L (3.5-5.1); SODIUM 141 MMOL/L (135-145); TOTAL CARBON DIOXIDE 29.5 MMOL/L (24-32); TOTAL PROTEIN 7.2 G/DL (6.4-8.2); eGFR > 90 ML/MIN
[2018-11-11 16:10] LABS: CLARITY,URINE CLEAR (Clear); COLOR,URINE STRAW (Yellow); GLUCOSE, URINE NEGATIVE (Neg); KETONES,URINE NEGATIVE (Neg); LEUKOCYTE ESTERASE ,URINE NEGATIVE (Neg); NITRITES, URINE NEGATIVE (Neg); OCCULT BLOOD,URINE NEGATIVE (Neg); PH,URINE 6.5 (4.8-8.0); PROTEIN,URINE NEGATIVE (Neg); UROBILINOGEN,URINE 0.2 E.U/dL (0.2-1.0)
[2018-11-11 16:11] LABS: UA COLLECTION TYPE URINAL
[2018-11-11 16:19] LABS: URINE AMPHETAMINE SCREEN POSITIVE (Neg); URINE BARBITUATE SCREEN NEGATIVE (Neg); URINE BENZODIAZEPINES SCREEN NEGATIVE (Neg); URINE CANNABINOID SCREEN POSITIVE (Neg); URINE COCAINE SCREEN NEGATIVE (Neg); URINE METHADONE SCREEN NEGATIVE (Neg); URINE OPIATE SCREEN NEGATIVE (Neg); URINE PHENCYCLIDINE SCREEN NEGATIVE (Neg)
[2018-11-11] MEDS ORDERED: IBUP-1986 PO (18:36)
[2018-11-11] MEDS ORDERED: PREG150C PO (19:00)
[2018-11-11] MEDS ORDERED: CYCL-1 PO (19:00)
[2018-11-11] MEDS ORDERED: QUET25TA PO (19:01)
[2018-11-11] MEDS ORDERED: non-formulary drug (Ibuprofen 1 TAB) PO PRN (19:30)
[2018-11-11] MEDS ORDERED: ibuprofen tablet 400 MG TABLET PO PRN (19:35)
--- NOTE | 2018-11-11 19:37 | NUR ---
pt somewhat unhelpful/unccoperative with assessment. states he want to be left alone and is somewhat aggressive/cantankerous. Was able to ask him some questions but will hold on physical assessment until he is more calm.
[2018-11-11] MEDS ORDERED: non-formulary drug (Pregabalin (Lyrica) 1 CAP) PO SCH (20:00)
[2018-11-11] MEDS: metFORMIN 500mg tablet PO SCH (20:09)
[2018-11-11] MEDS: pregabalin 75mg capsule PO SCH (20:09)
[2018-11-11] MEDS: gabapentin 300mg capsule PO SCH (20:09)
[2018-11-11] MEDS: cyclobenzaprine 10mg tablet PO PRN (20:45)
--- NOTE | 2018-11-11 21:19 | NUR ---
[facility] called for a telepsych consult. monitor set up in room. pt currently sleeping
--- NOTE | 2018-11-11 22:57 | NUR ---
pt is adamantly refusing telepsych. he is mad that he wasnt told when he first came here that he would have a consult. he states it is cold and impersonal. pt states he wants to leave because he doesnt like the way things are going. he is difficult to work/rationalize with.
--- NOTE | 2018-11-11 23:06 | NUR ---
MD at bedside speaking with pt
[2018-11-11] MEDS ORDERED: LORazepam 1 MG tablet PO ONE (23:20)
--- NOTE | 2018-11-11 23:27 | NUR ---
pt became agitated and threatened to leave because he didnt like the plan of care. Spoke with MD who ordered PO ativan
[2018-11-12] MEDS: pregabalin 75mg capsule PO SCH ×2 (08:19→20:00)
[2018-11-12] MEDS: gabapentin 300mg capsule PO SCH ×4 (08:19→21:59)
[2018-11-12] MEDS: metFORMIN 500mg tablet PO SCH ×3 (08:19→21:59)
[2018-11-12] MEDS: cyclobenzaprine 10mg tablet PO PRN (08:28)
[2018-11-12] MEDS ORDERED: nicotine 21mg patch - 24 hr TD ONE (08:30)
--- NOTE | 2018-11-12 13:21 | NUR ---
pt c/o hands darin swollen, tingling and painful on scale of 7/10.
--- NOTE | 2018-11-12 13:25 | NUR ---
let dr. calvillo know pt is having hand pain darin
--- NOTE | 2018-11-12 15:43 | NUR ---
PT IS GETTING ANGRY, FEELS LIKE HE IS NOT BEING TOLD WHATS GOING ON WITH HIS POC AND WANTS TO LEAVE. BASIC HYGIENE SUPPLIES GIVEN SO HE CAN BATHE. INFORMED CAITLIN Sesar NURSE.
--- NOTE | 2018-11-12 16:12 | NUR ---
phone provided so he can call his and kids.
--- NOTE | 2018-11-12 16:40 | NUR ---
bg [phone]
[2018-11-12] MEDS ORDERED: gabapentin 400mg capsule PO SCH (17:00)
--- NOTE | 2018-11-12 18:43 | NUR ---
TELE-PSYCH CONSULT RE-INTITIATED DUE TO IT BEING CANCELLED LAST NIGHT, I EXPLAINED TO THE PATIENT THAT THE DOCTOR NEEDS RECOMMENDATIONS FOR MEDICATIONS IN ORDER TO GET HIM TREATED. THE PATIENT TOLD ME HE WAS NEVER EXPLAINED THE PURPOSE OF THE TELE-PSYCH CONFERENCE. HE AGREES TO GO THROUGH IT.
--- NOTE | 2018-11-12 20:55 | NUR ---
TELE-PSYCH MD CA RECOMMENDS PT NOT BE PLACED ON 5150 AND DOES NOT MEET CRITERIA FOR HOLD. MD YBARRA MADE AWARE, WE ARE EXPECTING HIS D/C SHORTLY.
[2018-11-12] MEDS ORDERED: QUET50TA PO (21:14)
--- NOTE | 2018-11-12 21:18 | NUR ---
PT DOESN'T MEET CRITERIA FOR A HOLD PER TELE-PSYCH MD, BUT [facility] WROTE PT ON A 5150 BEFORE BRINGING HIM TO OUR FACILITY. PT WAS GOING TO BE DISCHARGED SINCE HE DOES NOT MEET CRITERIA FOR A HOLD, HOWEVER UPON GETTING PATIENTS HIS BELONGINGS TO LEAVE IT WAS DISCOVERED HE WAS ON A 5150 (WHICH WAS NOT IN THE APPROPRIATE BINDER) AND PER UNKNOWN LEGAL AUTHORITY PATIENT CAN'T BE DISCHARGED WITHOUT THE [facility] ASSESSORS AUTHORITY DESPITE MULTIPLY MEDICAL AND PSYCHOLOGICAL DOCTORS SAYING HE DOESN'T MEET CRITERIA FOR A HOLD.
--- NOTE | 2018-11-12 21:49 | NUR ---
[facility] CALLED TO ACCEPT THE PATIENT, NOT SURE THE PATIENT EVER SAW A PSYCHOLOGIST HERE BUT THEY ACCEPTED AND WILL BE FAXING TO THE [facility].
--- NOTE | 2018-11-12 22:17 | NUR ---
PT TO BE LEAVING FOR AT 0600.
--- NOTE | 2018-11-13 00:19 | NUR ---
PT SLEEPING ON LEFT SIDE.
[2018-11-13 06:10] VITALS: BP 141/87
[2018-11-13] MEDS ORDERED: OLANZapine 2.5MG tablet PO STA (06:21)
[2018-11-13] MEDS ORDERED: nicotine 21mg patch - 24 hr TD ONE (06:25)
--- NOTE | 2018-11-13 12:55 | NUR ---
ITZEL FROM [facility] CALLING BECAUSE PT THINKS WE HAVE [facility] LOCKED UP HERE AND WAS NOT GIVEN BACK TO PT, CALLED REGISTRATION TO LOOK, CALLER HOLDING HER PH# [phone]
== END 2018-11-13 06:41 ==
LOC: ER 15:02
DX: F32.9 Major depressive disorder, single episode, unspecified (principal); R45.851 Suicidal ideations; M79.89 Other specified soft tissue disorders; G43.909 Migraine, unspecified, not intractable, without status migrainosus; E11.9 Type 2 diabetes mellitus without complications; G89.29 Other chronic pain; M79.7 Fibromyalgia; F17.210 Nicotine dependence, cigarettes, uncomplicated; F12.10 Cannabis abuse, uncomplicated; Z56.0 Unemployment, unspecified; Z85.038 Personal history of other malignant neoplasm of large intestine; Z59.0 Homelessness; Z88.0 Allergy status to penicillin; Z79.899 Other long term (current) drug therapy; Z79.84 Long term (current) use of oral hypoglycemic drugs
CPT/HCPCS: 36415; 80053; 80305; 80320; 81003; 82948; 85025; 99285

== ENCOUNTER 2019-04-13 13:46 | Emergency (ER) | payer MEDICARE, MEDICAID ==
[~2019-04-13] VITALS: Ht 193 cm; Wt 84.8 kg
[~2019-04-13 13:46] MED LIST changes: -ASPI-611 PO; +CYCL-1 PO; -INSU100C10 SQ; -INSU100V9 SQ; -PRAV40TA3 PO; +PREG150C PO; +QUET25TA PO; +QUET50TA PO
[2019-04-13 13:57] VITALS: BP 188/134
--- NOTE | 2019-04-13 14:50 | NUR ---
patient is stating that he cant give me a urine specimen. Also would not let the safety inspector get a specimen from him. I told MD that he was being uncooperative.
[2019-04-13 15:34] LABS: BASOPHILS # (AUTO) 0.1 X10'3 (0-0.2); BASOPHILS % (AUTO) 0.5 % (0-1); EOSINOPHILS # (AUTO) 0.7 X10'3 (0-0.9); EOSINOPHILS % (AUTO) 3.8 % (0-6); HEMATOCRIT 42.1 % (42.0-52.0); HEMOGLOBIN 14.6 g/dl (14.0-17.9); LYMPHOCYTES # (AUTO) 1.6 X10'3 (1.1-4.8); MEAN CORPUSCULAR HEMOGLOBIN 31.6 PG (27.0-31.0); MEAN CORPUSCULAR HGB CONC 34.6 g/dL (33.0-36.5); MEAN CORPUSCULAR VOLUME 91.3 FL (78-98); MONOCYTES # (AUTO) 0.8 X10'3 (0-0.9); MONOCYTES % (AUTO) 4.8 % (2-12); NEUTROPHILS # (AUTO) 14.3 X10'3 (1.8-7.7); NEUTROPHILS % (AUTO) 81.9 % (42-75); PLATELET COUNT 508 X10'3 (140-440); RED BLOOD COUNT 4.61 X10'6 (4.70-6.10); RED CELL DISTRIBUTION WIDTH 15.9 % (11.5-14.5); WHITE BLOOD COUNT 17.5 X10'3 (4.5-11.0)
[2019-04-13] MEDS ORDERED: DIPH25CA83 PO (15:52)
[2019-04-13] MEDS ORDERED: PRED10TA23 PO (15:52)
[2019-04-13 15:53] LABS: ALANINE AMINOTRANSFERASE 34 U/L (12-78); ALBUMIN 3.4 G/DL (3.4-5.0); ALKALINE PHOSPHATASE 106 IU/L (46-116); ANION GAP 14 (8-16); ASPARTATE AMINO TRANSFERASE 20 U/L (10-37); BILIRUBIN,TOTAL 0.8 MG/DL (0.1-1.0); BLOOD UREA NITROGEN 17 MG/DL (7-18); BUN/CREATININE RATIO 14.7 (5.4-32.0); CALCIUM 8.8 MG/DL (8.5-10.1); CHLORIDE 100 MMOL/L (99-107); CREATININE 1.16 MG/DL (0.60-1.10); GLUCOSE 173 MG/DL (70-104); SODIUM 135 MMOL/L (135-145); TOTAL CARBON DIOXIDE 21.3 MMOL/L (24-32); TOTAL PROTEIN 6.7 G/DL (6.4-8.2); eGFR 66 ML/MIN
[2019-04-13 15:56] LABS: ETHANOL < 0.010 GM/DL (0.0-0.010)
[2019-04-13] MEDS ORDERED: potassium Cl 20 mEq SR tablet PO STA (15:57)
[2019-04-13] MEDS ORDERED: POTA20TA19 PO (15:58)
[2019-04-13] MEDS ORDERED: BACDS PO (16:09)
[2019-04-13] MEDS ORDERED: ondansetron 4mg rapidly disintigrating tab PO ONE (16:10)
[2019-04-13] MEDS ORDERED: dexamethasone 4mg/ml inj IM ONE (16:10)
[2019-04-13] MEDS ORDERED: sulfamethoxazole/trimethoprim DS (800/160mg) tablet PO ONE (16:10)
[2019-04-14] MEDS ORDERED: CEPH500C5 PO (14:18)
== END 2019-04-13 16:59 | disposition home or self-care (01) ==
LOC: ER 13:46
DX: L23.7 Allergic contact dermatitis due to plants, except food (principal); E11.65 Type 2 diabetes mellitus with hyperglycemia; G43.909 Migraine, unspecified, not intractable, without status migrainosus; M19.90 Unspecified osteoarthritis, unspecified site; G89.29 Other chronic pain; M79.7 Fibromyalgia; F32.9 Major depressive disorder, single episode, unspecified; F12.90 Cannabis use, unspecified, uncomplicated; Z88.0 Allergy status to penicillin; Z79.899 Other long term (current) drug therapy; Z86.14 Personal history of Methicillin resistant Staphylococcus aureus infection; Z59.0 Homelessness; Z56.0 Unemployment, unspecified; Z85.038 Personal history of other malignant neoplasm of large intestine
CPT/HCPCS: 36415; 80053; 80320; 82948; 85025; 96372; 99284; J1100; J2405

== ENCOUNTER 2019-04-14 12:19 | Emergency (ER) | payer MEDICARE, MEDICAID ==
[~2019-04-14] VITALS: Ht 193 cm; Wt 84.1 kg
[~2019-04-14 12:19] MED LIST changes: +BACDS PO; +DIPH25CA83 PO; +POTA20TA19 PO; +PRED10TA23 PO
[2019-04-14 12:56] VITALS: BP 186/114
[2019-04-14] MEDS ORDERED: CEPH500C5 PO (14:18)
== END 2019-04-14 15:10 | disposition home or self-care (01) ==
LOC: ER 12:20
DX: L23.7 Allergic contact dermatitis due to plants, except food (principal); G43.909 Migraine, unspecified, not intractable, without status migrainosus; E11.9 Type 2 diabetes mellitus without complications; M19.90 Unspecified osteoarthritis, unspecified site; G89.29 Other chronic pain; M79.7 Fibromyalgia; F12.90 Cannabis use, unspecified, uncomplicated; Z86.14 Personal history of Methicillin resistant Staphylococcus aureus infection; Z85.038 Personal history of other malignant neoplasm of large intestine; Z59.0 Homelessness; Z56.0 Unemployment, unspecified; Z88.0 Allergy status to penicillin; Z79.899 Other long term (current) drug therapy
CPT/HCPCS: 99283